=== PATIENT | male | born 1985 | race Caucasian/White ===

== ENCOUNTER 2016-12-17 22:18 | Emergency (ER) | payer OTHER ==
[~2016-12-17] VITALS: Ht 172.7 cm; Wt 82.0 kg
[~2016-12-17 22:18] MED LIST: ACET-1256 PO; IBUP-1050 PO
[2016-12-17 22:21] VITALS: TEMP 37; Ht 172.7 cm; Wt 82.0 kg
[2016-12-17] MEDS ORDERED: TRAM-10 PO (22:43)
[2016-12-17] MEDS ORDERED: OMEP20CA59 PO (22:43)
[2016-12-17] MEDS ORDERED: CYCL10TA6 PO (22:43)
[2016-12-17] MEDS ORDERED: ROPI1TAB PO (22:43)
[2016-12-17] MEDS ORDERED: HYDR-5688 PO (22:43)
[2016-12-17] MEDS ORDERED: AMT10 PO (22:43)
[2016-12-17] MEDS ORDERED: DULO60CA44 PO (22:43)
[2016-12-17] MEDS ORDERED: GABA1CAP5 PO (22:43)
[2016-12-17] MEDS ORDERED: OXYCODONE/ACETAMINOPHEN 5-325 TAB PO ONE (23:15)
[2016-12-17] MEDS ORDERED: OXYC-57 PO (23:43)
[2016-12-17] MEDS ORDERED: PERCOCET HOME PACK PO ONE (23:45)
[2016-12-17 23:58] VITALS: BP 115/80; PULSE 103; O2SAT 98
--- NOTE | 2016-12-18 00:22 | EMERGENCY ROOM VISIT NOTE ---
ED Visit Note First contact with patient: 22:52 CHIEF COMPLAINT: Left ankle and foot pain. HISTORY OF PRESENT ILLNESS: Mr. Jackson is a 31-year old white male who is brought via wheelchair into the ED accompanied by his complaining of left ankle and foot pain. Historically patient reports he has a history of clubfoot bilaterally. He reports for the last 2 years he has been having chronic pain and swelling of the foot. He reports he has been seen by multiple orthopedic physicians and no cause for swelling and pain has been found. Patient reports approximately 1 PM today patient was seen by Dr. Fan of [facility] and had an injection of steroids into his left ankle. Patient reports since arriving home since his injection he reports he has been having increasing pain throughout the left ankle and left foot. Currently he describes his pain as a throbbing and burning sensation. He rates his discomfort 10/10. The pain is nonradiating. The pain worsens with weightbearing, plantar flexion, dorsiflexion, inversion and eversion of the ankle. He has mild relief of his discomfort when he is holding it up in the air. He reports he has taken tramadol and one of his 's Vicodin tablets without relief of his discomfort. Associated with his pain he reports he is there is swelling throughout the foot and ankle. He denies any associated fevers, chills, sweats, skin eruptions, skin color changes, recent trauma, knee pain, lower leg pain, ankle/foot weakness/numbness/ tingling. REVIEW OF SYSTEMS: As noted above in History of Present Illness. PAST MEDICAL HISTORY: As noted above, GERD, status post appendectomy. CURRENT MEDICATIONS: Medications Dose Route/Sig Max Daily Dose Days Date Category Dose Instructions Savannah 5MG/325MG (Acetaminophen/Hydrocodone Bitart) Tab 1 Tablet PO DIRECTED PRN 12/17/16 Reported 'S MEDICATION, PT TOOK "AFTER TRAMADOL DIDN'T WORK". Requip (Ropinirole HCl) 1 Mg Tab 1 Mg PO HS 12/17/16 Reported Flexeril (Cyclobenzaprine Hcl) 10 Mg Tab 10 Mg PO TID PRN 12/17/16 Reported Cymbalta (Duloxetine Hcl) 60 Mg Cap 60 Mg PO QAM 12/17/16 Reported Ultram (Tramadol HCl) 50 Mg Tab 50 Mg PO TID PRN 12/17/16 Reported Prilosec (Omeprazole) 20 Mg Capcr 40 Mg PO AC 12/17/16 Reported Amitriptyline HCl 10 Mg Tab 20 Mg PO HS 12/17/16 Reported Neurontin (Gabapentin) 400 Mg Cap 400 Mg PO TID 12/17/16 Reported Tylenol (Acetaminophen) 500 Mg Tab 1,000 Mg PO Q6 PRN 11/23/15 Reported ALLERGIES TO MEDICATIONS: Patient denies. SOCIAL HISTORY: Patient is not employed; he feels safe in his home environment ; he admits to tobacco and alcohol use. PHYSICAL EXAM: Vital Signs: Date Time Temp Pulse Resp B/P Pulse Ox O2 Delivery O2 Flow Rate FiO2 12/17/16 23:58 103 18 115/80 98 12/17/16 22:21 37.0 122 18 129/74 94 Room Air General: 31 year old male in mild/moderate distress due to pain, nontoxic- appearing, afebrile and hemodynamically stable. Neurological: Awake, alert, oriented to person place and time. Answering questions appropriately and following commands. Skin: Warm dry and pink. No soft tissue injuries or skin eruptions. Left Lower Extremity: No gross mulu deformities. No tenderness in the hip or knee. Diffuse tenderness through the ankle and foot. The injection site which is over the anterior aspect of the lateral malleolus does not show any signs of infection and there is no local erythema or edema. He refused to do range of motion exercises and ligamentous testing at the level of the ankle due to pain. There is a small amount of swelling over the top of the foot in the area of the MTP joints without bony deformity or crepitus. He was able to wiggle his toes. Throughout the foot the skin was warm and pink and capillary refill is brisk. He is able to distinguish light sensations through all dermatomes of the foot. ED COURSE: Patient is assessed as noted above. Left Ankle X-Rays: Were read by myself and shows no acute fractures or dislocations. No foreign body or joint effusion. Radiologist review is pending. Patient was given one Percocet 5/325 mg tablet by mouth for pain. Patient is placed in a gel splint; he reports he has crutches in his vehicle. Patient's case was reviewed with Dr. Beal; we agreed on diagnostic approach, treatment, disposition and plan. Patient is educated about his condition and instructed on his treatment plan; he verbalizes understanding and agreement with the our plan. CLINICAL IMPRESSION: Left ankle and foot pain. DISPOSITION: Patient is discharged to home in stable condition accompanied by his ; prior to departure he was reassessed and subjectively reported he was feeling better and rated his discomfort 5/10. PLAN: Comfort measures were discussed with the pain including rest, ice, splint and crutch use and a sliding pain medication scale of acetaminophen and Savannah; patient was encouraged not to use any of his tramadol while using the Percocet. Additionally patient was warned about proper precautions with narcotics use. I did check the [facility] database and it showed that he receives multiple prescriptions of tramadol but no narcotics. Patient should stay in the splint and on crutches until he follows up with the orthopedic physician for continued care and treatment. Patient should return emergency department as needed for increasing pain, any signs of infection, foot weakness/numbness/tingling or any new/concerning symptoms.
--- NOTE | 2016-12-18 06:38 | DIAGNOSTIC IMAGING REPORT ---
LEFT ANKLE MIN 3 VIEWS ROUTINE CLINICAL HISTORY: Left ankle pain COMPARISON: 11/23/2015 DISCUSSION: There is a possible joint effusion. There are no acute fractures. 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 There is no dislocation. IMPRESSION: No acute fractures. 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 Electronically signed by: Dell Norwood M.D. 12/18/2016 6:37 AM Dictated Date/Time: 12/18/2016 6:35 AM
== END 2016-12-17 23:59 | disposition home or self-care (01) ==
LOC: C.EDB 22:20
DX: M25.572 Pain in left ankle and joints of left foot (principal); M79.672 Pain in left foot; K21.9 Gastro-esophageal reflux disease without esophagitis; F17.200 Nicotine dependence, unspecified, uncomplicated

== ENCOUNTER 2017-01-22 05:41 | Day surgery (SDC) | payer OTHER ==
[2017-01-06 13:31] VITALS: BMI 28.0
[2017-01-08 12:21] LABS: BASO % 0.1 %; BASO ABS # 0.02 K/uL (0-0.2); COMPLETE YES; HEMATOCRIT 47.1 % (42-52); IG% 0.4 %; LYMPH % 22.3 %; LYMPH ABS # 3.08 K/uL (1.2-3.4); MEAN CELL VOLUME 93.3 fL (80-100); MEAN CORPUSCULAR HEMOGLOBIN 30.7 pg (25-34); MEAN CORPUSCULAR HGB CONC 32.9 g/dl (32-36); MEAN PLATELET VOLUME 10.5 fL (7.4-10.4); MONO % 8.5 %; NEUT % 67.7 %; PLATELET COUNT 252 K/uL (130-400); RED BLOOD COUNT 5.05 M/uL (4.7-6.1); WHITE BLOOD COUNT 13.84 K/uL (4.8-10.8)
[2017-01-08 12:29] LABS: CREATININE 0.98 mg/dl (0.60-1.40); POTASSIUM 3.7 mmol/L (3.5-5.1)
[2017-01-08 12:33] LABS: PARTIAL THROMBOPLASTIN RATIO 1.1; PROTHROMBIN TIME (PATIENT) 10.3 SECONDS (9.0-12.0)
[2017-01-08 12:36] LABS: CALCIUM 9.3 mg/dl (8.5-10.1)
--- NOTE | 2017-01-21 12:28 | HISTORY & PHYSICAL EXAMINATION ---
DATE OF ADMISSION: 01/22/2017 SUBJECTIVE CHIEF COMPLAINT: Left foot pain. HISTORY OF PRESENT ILLNESS: This is a patient who had had a clubfoot deformity surgery as a child and has developed worsening pain and deformity of the left hindfoot over many years. He had been treated conservatively; however, he has failed conservative management. He recently had a CT scan which showed hindfoot osteoarthritis. He is now being set up for surgical treatment. PAST MEDICAL HISTORY: Sleep apnea, TMJ, acid reflux, history of extremity numbness. FAMILY HISTORY: Noncontributory. SOCIAL HISTORY: The patient is a 1 pack per day smoker and has been for multiple years. Denies alcohol use. PAST SURGICAL HISTORY: Foot and ankle clubfoot correction. ALLERGIES: DEPO-MEDROL. HE HAD SWELLING OVER THE INJECTION SITE THE REACTION. CURRENT MEDICATIONS: Gabapentin 400 mg 1 p.o. t.i.d., amitriptyline 10 mg 1 p.o. t.i.d., omeprazole 20 mg 1 p.o. daily, tramadol 50 mg 1 p.o. q.6 hours as needed for pain, Duloxetine 60 mg 1 p.o. daily, ropinirole 1 mg 1 p.o. t.i.d., cyclobenzaprine 10 mg 1 p.o. b.i.d. OBJECTIVE PHYSICAL EXAMINATION: GENERAL: The patient is alert and oriented x3. He is in no acute distress. He is a well-dressed, well-nourished 31-year-old male whose affect is appropriate. CARDIOVASCULAR: Heart has a regular rhythm and rate without murmurs. LUNGS: Clear to auscultation bilaterally. EXTREMITIES: Dorsalis pedis, posterior tibial pulse +2/4. Cap refill is less than 2 seconds. LYMPHATICS: No evidence of any swollen lymph nodes. MUSCULOSKELETAL: The patient has an antalgic gait favoring the left lower extremity. Upon inspection of left lower extremity, the patient has swelling noted of the left hindfoot. There is a healed surgical incision of the left hindfoot. With palpation, he has tenderness at the medial and lateral hindfoot on the left side. He has decreased range of motion particularly with dorsiflexion when he gets to approximately neutral with 0 degrees of dorsiflexion. NEUROLOGIC: Sensation normal and intact distally. X-RAY EXAM: CT of the left ankle demonstrates postoperative changes from clubfoot repair with secondary osteoarthritis of the tibiotalar, subtalar and talonavicular joints. ASSESSMENT AND DIAGNOSES: 1. Left hindfoot degenerative joint disease. 2. Left Achilles contracture. PLAN: Above assessment was discussed with the patient. At this time it was recommended the patient undergo a left triple arthrodesis with percutaneous Tendo-Achilles Lengthening. All potential risks, benefits, complications, alternatives and rehab have been discussed with the patient. At this time, he wishes to proceed with the surgery as indicated. He will be scheduled for the surgery on 01/22/2017.
[~2017-01-22] VITALS: Ht 172.7 cm; Wt 85.0 kg
[~2017-01-22 05:41] MED LIST changes: -ACET-1256 PO; +AMT10 PO; +CYCL10TA6 PO; +DULO60CA44 PO; +GABA1CAP5 PO; -IBUP-1050 PO; +OMEP20CA59 PO; +ROPI1TAB PO; +TRAM-10 PO
[2017-01-22] MEDS ORDERED: CEFAZOLIN 2000 MG/60 ML D5W IV SCH (06:00)
[2017-01-22] MEDS ORDERED: LACTATED RINGER'S 1000ML 1,000 ML IV SCH (06:00)
[2017-01-22] MEDS ORDERED: ROPIVACAINE 0.5% 5 MG/ML 30 ML VIAL ONE (06:34)
[2017-01-22 06:42] VITALS: BP 143/87; PULSE 82; TEMP 36.6; O2SAT 97; Ht 172.7 cm; Wt 85.0 kg
[2017-01-22] MEDS ORDERED: LIDOCAINE HCL 2% 2 ML VIAL (20MG/ML) ONE (06:49)
[2017-01-22] MEDS ORDERED: PROPOFOL IV EMULSION 10 MG/ML 20 ML VIAL IV ONE ×3 (06:49→09:59)
[2017-01-22] MEDS ORDERED: FENTANYL CITRATE INJ 50 MCG/1 ML 2 ML VIAL ONE ×2 (06:50→09:59)
[2017-01-22] MEDS ORDERED: MIDAZOLAM HCL 1 MG/ML 2ML VIAL ONE ×3 (06:50→09:59)
[2017-01-22] MEDS ORDERED: BACITRACIN 50000 UNIT VIAL ONE (07:00)
[2017-01-22] MEDS ORDERED: BUPIVACAINE 0.5 % 5 MG/1 ML MPF 30ML VIAL ONE (07:00)
[2017-01-22] MEDS ORDERED: BUPIVACAINE 0.5 % 5 MG/1 ML PF 10ML VIAL ONE (07:17)
--- NOTE | 2017-01-22 07:40 | History & Physical Bridge Note ---
H&P Re-Evaluation Bridge Note: I have examined the patient, reviewed the History & Physical and in the interval since the performance of the History & Physical I have noted the following changes of clinical significance: No changes noted
[2017-01-22] MEDS ORDERED: ATROPINE SULFATE 0.1 MG/ML 5ML SYR IV PRN (08:00)
[2017-01-22] MEDS ORDERED: ONDANSETRON INJ 2 MG/ML 2 ML VIAL IV PRN (08:00)
[2017-01-22] MEDS ORDERED: EpHEDrine SULFATE INJ 50 MG/ML AMP IV PRN (08:00)
[2017-01-22] MEDS ORDERED: HYDROmorphone INJ 1 MG/ML SYR IV PRN (08:00)
[2017-01-22] MEDS ORDERED: FENTANYL CITRATE INJ 50 MCG/1 ML 2 ML VIAL IV PRN (08:00)
--- NOTE | 2017-01-22 10:21 | DIAGNOSTIC IMAGING REPORT ---
FLUOROSCOPIC IMAGES OF THE LEFT ANKLE CLINICAL HISTORY: Left triple arthrodesis. COMPARISON STUDY: Left ankle radiographs December 17, 2016. Fluoroscopy time: 17 seconds. FINDINGS: 2 fluoroscopic images demonstrate cannulated screws extending across the subtalar, talonavicular and calcaneocuboid articulations consistent with a triple arthrodesis. The hardware is intact. A few skin nayana project over the distal Achilles. There is soft tissue gas as expected. IMPRESSION: Expected findings following left triple arthrodesis. Electronically signed by: Jaun Jules M.D. 01/22/2017 10:20 AM Dictated Date/Time: 01/22/2017 10:18 AM
--- NOTE | 2017-01-22 10:45 | [facility] Post Operative Brief Note ---
Immediate Operative Summary Operative Date Jan 22, 2017. Pre-Operative Diagnosis Left hindfoot degenerative joint disease, Left Achilles contracture, Post-Clubfoot Correction. Post-Operative Diagnosis Left hindfoot degenerative joint disease, Left Achilles contracture, Post-Clubfoot Correction. Procedure(s) Performed Left Triple Arthrodesis, Percutaneous TendoAchilles Lengthening, Application Allograft Surgeon Dr. Fan Automatic Folder Seamer Surgeon(s) Valentino Orr PA-C Estimated Blood Loss 5cc Findings See Dict Specimens None Drains HV x 1 Anesthesia Spinal with sedation and popliteal nerve block Complication(s) None Disposition Recovery Room / PACU
[2017-01-22] MEDS ORDERED: OXYC-57 PO (10:54)
[2017-01-22] MEDS ORDERED: ASPEC81 PO (10:54)
--- NOTE | 2017-01-22 10:59 | Discharge Instructions ---
Discharge Instructions Date of Service Jan 22, 2017. Admission Reason for Admission: Left Ankle Degenerative Joint Disease Discharge Discharge Diagnosis / Problem: left hindfoot osteoarthritis Discharge Goals Goal(s): Decrease discomfort, Improve function Activity Recommendations Activity Limitations: per Instructions/Follow-up section Weightbearing Status: Left non-weightbearing . Instructions / Follow-Up Instructions / Follow-Up ACTIVITY RECOMMENDATIONS: Limitations: No weight bearing to affected limb at all times. SPECIAL CARE INSTRUCTIONS: * Some drainage onto the dressing is normal and is no cause for alarm. * Some swelling is natural especially after walking. * When resting, keep your foot elevated above the level of your heart. * Call [facility] if you notice: -Increased drainage -Fever over 101 degrees F -Severe constant pain * If the hemovac drain is still in at home, you may remove it the day after your surgery. To remove, remove all tape from the JUSTUS bandage and pull on the tubing that is near your great toe away from the foot. It should remove without resistance. If the tubing feels like it is stretching, do not continue to try to remove it and contact the office for instructions. * Take Aspirin 81 mg by mouth every 12 hours for 30 days after your surgery. BANDAGE: * Leave bandage/cast in place unless otherwise directed. * Keep bandage/cast dry at all times. FOLLOW UP VISIT WITH DR. GUZMÁN If appointment is not already scheduled: Please call [facility] after you get home today to schedule a follow-up appointment for [address] Guzmán at . Current Hospital Diet Patient's current hospital diet: Discharge Diet Recommended Diet: Regular Diet Procedures Procedures Performed: Left Triple Arthrodesis, Percutaneous TendoAchilles Lengthening, Application Allograft Pending Studies Studies pending at discharge: no Medical Emergencies . Who to Call and When: Medical Emergencies: If at any time you feel your situation is an emergency, please call 911 immediately. . Non-Emergent Contact Non-Emergency issues call your: Surgeon Call Non-Emergent contact if: temperature is above 101, your pain is not controlled, your pain is worsening . "Provider Documentation" section prepared by Valentino Orr. . VTE Core Measure Inpt VTE Proph given/why not?: SCD's
[2017-01-22] MEDS ORDERED: OXYCODONE/ACETAMINOPHEN 5-325 TAB PO PRN (11:00)
[2017-01-22 11:15] VITALS: BP 117/75; PULSE 82; TEMP 36.4; O2SAT 98
--- NOTE | 2017-01-22 11:16 | DIAGNOSTIC IMAGING REPORT ---
LEFT FOOT MIN 3 VIEWS ROUTINE CLINICAL HISTORY: post op fusion COMPARISON: None. DISCUSSION: Operative findings consistent with a total ankle fusion. Sacral screws are present at the talocalcaneal region. Expected soft tissue postoperative change IMPRESSION: Acceptable alignment post ankle fusion Electronically signed by: Anatoly Cadet M.D. 01/22/2017 11:15 AM Dictated Date/Time: 01/22/2017 11:14 AM
--- NOTE | 2017-01-22 11:18 | DIAGNOSTIC IMAGING REPORT ---
LEFT ANKLE 2 VIEWS CLINICAL HISTORY: post op COMPARISON: Intraoperative study performed 01/22/2017 DISCUSSION: 2 views are provided for interpretation. The fine bony details obscured by an overlying plaster cast. There are postsurgical changes of a hindfoot fusion. Metallic calcaneal, calcaneal navicular, and calcaneocuboid cannulated screws are visualized. IMPRESSION: Postsurgical changes of a triple hindfoot arthrodesis Electronically signed by: Dell Norwood M.D. 01/22/2017 11:17 AM Dictated Date/Time: 01/22/2017 11:15 AM
--- NOTE | 2017-01-22 11:22 | Anesthesiology Progress Note ---
Anesthesia Post Op Note Date & Time Jan 22, 2017 at 11:21 Vital Signs Pain Intensity: 0 Vital Signs Past 12 Hours Date Time Temp Pulse Resp B/P (MAP) Pulse Ox O2 Delivery O2 Flow Rate FiO2 01/22/17 11:10 58 18 116/70 100 Oxymask 3 01/22/17 11:00 36.4 60 18 117/74 100 Oxymask 3 01/22/17 10:50 59 16 103/68 100 Oxymask 10 01/22/17 10:44 36.5 63 20 111/82 100 Oxymask 10 01/22/17 06:42 36.6 82 16 143/87 (105) 97 Room Air Notes Mental Status: alert / awake / arousable, participated in evaluation Pt Amnestic to Procedure: Yes Nausea / Vomiting: adequately controlled Pain: adequately controlled Airway Patency, RR, SpO2: stable & adequate BP & HR: stable & adequate Hydration State: stable & adequate Neuraxial Anesthesia: was administered, sensory block is resolving Anesthetic Complications: no major complications apparent
[2017-01-22 11:45] VITALS: BP 117/68; PULSE 80; TEMP 36.4; O2SAT 95
[2017-01-22 12:15] VITALS: BP 122/65; PULSE 85; TEMP 36.4; O2SAT 96
--- NOTE | 2017-01-22 12:23 | OPERATIVE REPORT ---
DATE OF OPERATION: 01/22/2017 PREOPERATIVE DIAGNOSES: 1. Left hindfoot degenerative joint disease. 2. Achilles contracture. 3. Post-clubfoot syndrome. POSTOPERATIVE DIAGNOSES: Same. PROCEDURE: 1. Left triple arthrodesis. 2. Percutaneous tendon Achilles lengthening. 2. Application of allograft. SURGEON: Dean Fan DO PALLIATIVE CARE PHYSICIAN: Valentino Orr PA-C, who was present for patient positioning, sterile prep and drape, management of retractors and instruments. He was present through the critical portions of the case including wound closure, application of sterile dressing and transport of the patient to recovery. ANESTHESIA: Spinal with sedation and popliteal nerve block. SPECIMENS: None. DRAINS: Hemovac x1. COMPLICATIONS: None. BLOOD LOSS: 5 mL. PERTINENT HISTORY: This is a 31-year-old gentleman who had a prior club foot correction as a child and for the last approximately 30 years, has done fairly well; however, over the last 2 years, has had progressive chronic and worsening degenerative arthritis, which was limiting and debilitating. He had difficulty with weightbearing and walking. Pain interferes with his ability and his comfort in the day to day life. The patient had a radiograph, which demonstrated significant deformity and degenerative arthritis. The patient was then scheduled for surgery as indicated. All potential risks, benefits, complications, alternatives, rehab, potential for incomplete relief of symptoms, need for further surgery, DVT, PE, , persistent pain, swelling, scarring, weakness, neurovascular injury, wound complications, hardware breakage, nonunion, and malunion were discussed with the patient. The patient decided to proceed with the procedure as indicated. DESCRIPTION OF PROCEDURE: The patient was taken to the Operating Suite, placed supine on the Operating Room table, after consent and identification of the proper operative site, the patient was anesthetized. LMA was placed. Tourniquet was placed high on the left lower extremity. Left lower extremity was then sterilely prepped and draped in the usual fashion. Exsanguinated with an Esmarch bandage and tourniquet inflated to 350 mmHg. Next, the foot was held in dorsiflexion and a three-part percutaneous incision was made with an 11-blade scalpel to lengthen the Achilles tendon using standard technique. Next, the stab incisions were then closed using interrupted skin nayana. Next, the 15-blade scalpel was used to make an incision from the distal aspect of the fibula to the base of the fourth metatarsal. The incision was deepened through subcutaneous tissue and meticulous hemostasis was obtained with electrocautery. Subcutaneous nerves were identified, retracted and protected. The extensor digitorum brevis was identified and was sharply elevated from the anterior process of the calcaneus revealing the sinus tarsi. Next, the sinus tarsi was debrided carefully with a rongeur and 15-blade scalpel. A cervical lamina journeyman carpenter was placed in the sinus tarsi opening the subtalar joint. Subtalar joint was then prepared with the use of a curette and rongeur to resect the articular surfaces down to subchondral bleeding bone. Irrigation was performed with sterile normal saline and then 2-mm drill bit was used to further prepare the joint surface with multiple drill holes in both surfaces of the subtalar joint and a small osteotome and mallet were used to fish scale the joint surfaces to increase surface area and bleeding. Next, the calcaneocuboid joint was then entered with the 15-blade scalpel, debrided of soft tissue and then a lamina journeyman carpenter was placed in the joint opening it for preparation with a curette and rongeur to remove any articular surface down to subchondral bleeding bone. Next, the 2-mm drill bit was used to further prepare the joint with multiple drill holes into the joint and then a small osteotome and mallet were used to fish scale the joint. Next, the 15-blade was used to make an incision from the distal aspect of the tibia to the base of the naviculocuneiform joint. The incision was deepened through subcutaneous tissue. Meticulous hemostasis obtained with electrocautery. A Weitlaner retractor was placed in the wound. The greater saphenous vein was identified, retracted and protected. The capsule of the talonavicular joint was then entered sharply with a 15-blade scalpel and elevated both superior and inferiorly. A small Denise was placed on the neck of the talus and further soft tissue elevation was performed with the 15-blade scalpel until the talonavicular joint was clearly visualized. The articular surface was then debrided with curette and rongeur and a cervical lamina journeyman carpenter was placed in the joint. Next, it was irrigated with sterile normal saline and a 2-mm drill bit was used to make multiple holes in the joint surfaces and fish scaling was performed with a small osteotome and mallet. Next, the medial and lateral incisions were irrigated with sterile normal saline and the joint surfaces were then aligned appropriately based on alignment of the lower extremity and the kneecap. Subtalar joint was aligned and then a 7.3-mm cannulated guidepin was driven from the superior aspect of the talus across the subtalar joint into the calcaneus under fluoroscopic control. Next, an appropriate length 7.3-mm short-thread screw was placed under fluoroscopic control and countersunk slightly. Next, the guidepin was removed. Next, 2.25 mm guidepin was used to stabilize the talonavicular joint in appropriate alignment and then the calcaneocuboid joint was then stabilized with appropriate alignment under fluoroscopic control. Next, appropriate length of 7.3mm cannulated screws were placed across the talonavicular and calcaneocuboid joints respectively under fluoroscopic control. All guidepins were removed. Wounds were irrigated with sterile normal saline and bone graft was then packed in and around the subtalar, talonavicular and calcaneocuboid joints which was comprised of 15 cc of cancellous bone chips and autograft. A 10-Pashto single lumen Hemovac drain was then placed in the lateral aspect of the wound exiting dorsolaterally and the extensor digitorum brevis then closed back to its origin with interrupted 2-0 Vicryl sutures. The talonavicular joint capsule was closed using 2-0 Vicryl sutures. The dermis was closed using buried interrupted 3-0 Vicryl sutures medially and laterally and then skin incisions were closed using 4-0 Nylon sutures. A sterile compressive dressing and bulky Conrad-Long plaster splint was applied, overwrapped with an Jj wrap. The tourniquet was released. DISPOSITION: The patient awakened and taken to Recovery in stable condition. I attest to the content of the Intraoperative Record and any orders documented therein. Any exceptions are noted below. ALETHEA
== END 2017-01-22 12:30 | disposition home or self-care (01) ==
LOC: C.ACU 05:41
PROVIDERS: ATTEND Orthopaedic Surgery Sports Medicine
DX: M19.072 Primary osteoarthritis, left ankle and foot (principal); M67.02 Short Achilles tendon (acquired), left ankle; R29.898 Other symptoms and signs involving the musculoskeletal system; F17.200 Nicotine dependence, unspecified, uncomplicated; Z79.899 Other long term (current) drug therapy; Z68.28 Body mass index [BMI] 28.0-28.9, adult; Z90.89 Acquired absence of other organs; Z98.890 Other specified postprocedural states

== ENCOUNTER 2017-11-15 21:31 | Emergency (ER) | payer OTHER ==
[~2017-11-15] VITALS: Ht 175.3 cm; Wt 85.0 kg
[~2017-11-15 21:31] MED LIST changes: -AMT10 PO; +ASPEC81 PO; -CYCL10TA6 PO; -DULO60CA44 PO; -GABA1CAP5 PO; -ROPI1TAB PO; -TRAM-10 PO
[2017-11-15 21:46] VITALS: TEMP 36.7; Ht 175.3 cm; Wt 85.0 kg
[2017-11-15] MEDS ORDERED: CYCL10TA6 PO (22:43)
[2017-11-15] MEDS ORDERED: AMT10 PO (22:43)
[2017-11-15] MEDS ORDERED: GABA-1220 PO (22:43)
[2017-11-15] MEDS ORDERED: DULO60CA44 PO (22:43)
[2017-11-15] MEDS ORDERED: ROPI1TAB PO (22:43)
[2017-11-15] MEDS ORDERED: OMEP20CA9 PO (23:23)
[2017-11-15] MEDS ORDERED: ASPI81TA28 PO (23:23)
[2017-11-15] MEDS ORDERED: OXYC-57 PO (23:23)
[2017-11-15] MEDS ORDERED: MoRPHine SULFATE 10 MG/ML CARP/VIAL IM STA (23:33)
[2017-11-15] MEDS ORDERED: ONDANSETRON 4MG OD TAB PO ONE (23:45)
[2017-11-16 00:57] VITALS: BP 144/87; PULSE 98; O2SAT 98
[2017-11-16] MEDS ORDERED: OXYC1TAB3 PO (01:14)
[2017-11-16] MEDS ORDERED: OXYCODONE IR HOME PACK PO ONE (01:15)
--- NOTE | 2017-11-16 05:45 | EMERGENCY ROOM VISIT NOTE ---
History First contact with patient: 23:10 Chief Complaint: FOOT PAIN Stated Complaint: EXTREME PAIN, S/P RT FOOT SURGERY TODAY History of Present Illness The patient is a 32 year old male who presents to the Emergency Room with complaints of severe right foot and ankle pain who had surgery on his ankle earlier today by Dr. Fan. Patient had pins and screws placed. Patient states he took his Percocet with no improvement of symptoms. Pain currently 10 out of 10. Nothing makes it better or worse. Patient denies chest pain, dyspnea, numbness, tingling, new injury to the area. Review of Systems An 10 system review of systems was completed with positives and pertinent negatives listed in the HPI. Past Medical/Surgical History Medical Problems: (1) Asthma (2) Stomach problems Family History Cancer Social History Smoking Status: Current Every Day Smoker Drug Use: none Marital Status: in relationship Current/Historical Medications Scheduled Amitriptyline HCl (Amitriptyline HCl), 20 MG PO HS Aspirin (Aspirin Ec), 81 MG PO Q12 Duloxetine Hcl (Cymbalta), 60 MG PO QAM Gabapentin (Neurontin), 400 MG PO TID Omeprazole (Prilosec), 20 MG PO BID Ropinirole (Requip), 1 MG PO HS Scheduled PRN Cyclobenzaprine Hcl (Flexeril), 10 MG PO TID PRN for Muscle Spasm Oxycodone Immediate Rel Tab (Roxicodone Ir), 1-2 TAB PO Q4H PRN for Severe Pain Oxycodone/Acetaminophen 5MG/325MG (Percocet 5MG/325MG), 1-2 TABLETS PO Q4H PRN for Pain Physical Exam Vital Signs Date Time Temp Pulse Resp B/P (MAP) Pulse Ox O2 Delivery O2 Flow Rate FiO2 11/16/17 00:57 98 18 144/87 98 Room Air 11/15/17 21:46 36.7 116 18 141/91 96 Room Air Physical Exam VITALS: Vitals are noted on the nurse's note and reviewed by myself. Vital signs stable. GENERAL: White male who appears in pain, in no acute distress, nondiaphoretic, well-developed well-nourished. SKIN: Capillary reflex less than 2 seconds. HEENT: Normocephalic. PERRLA. EOMI. Nares patent. Mucous membranes moist. Neck is supple without nuchal rigidity. HEART: Regular rate and rhythm without murmurs gallops or rubs. LUNGS: Clear to auscultation bilaterally without wheezes, rales or rhonchi. No retractions or accessory muscle use. ABDOMEN: Positive bowel sounds x 4. Normal tympanic percussion. Soft, nontender, without masses or organomegaly. Melchor sign negative. No guarding or rebound tenderness. MUSCULOSKELETAL: No gross musculoskeletal defects. Right ankle and foot with surgical sutures intact slightly edematous without signs of infection. Pedal pulses +2 and equal and present bilaterally. No lymphangitis. No calf tenderness. NEURO: Patient was alert and oriented to person place and time. Normal sensation to light and sharp touch. No focal neurological deficits. Medical Decision & Procedures Medications Administered Medications (Trade) Dose Ordered Sig/Can Route Start Time Stop Time Status Last Admin Dose Admin Morphine Sulfate (MoRPHine SULFATE INJ) 8 mg NOW STAT IM 11/15/17 23:33 11/15/17 23:34 DC 11/16/17 00:02 8 MG Ondansetron HCl (Zofran Odt) 4 mg ONE ONCE PO 11/15/17 23:45 11/15/17 23:46 DC 11/16/17 00:01 4 MG Oxycodone HCl (Roxicodone Immediate Rel 5MG Home Pack) 1 homepack UD ONCE PO 11/16/17 01:15 11/16/17 01:16 DC 11/16/17 01:27 1 HOMEPACK ED Course Prior records reviewed and summarized above. Triage Nursing notes reviewed. Additional history obtained from the family. The patient's history was concerning for swelling and pain in the leg. Differential diagnosis: Etiologies such as postsurgical pain, DVT, musculoskeletal, infection, joint effusion, trauma, lymphedema, idiopathic, as well as others were entertained.. Physical examination: The physical examination revealed no signs of infection. Neurovascularly intact. ER treatment provided: Morphine, Zofran, home back OxyIR On reassessment the patient felt better. Diagnostics interpreted by me: Deferred Consultation: A consultation was placed with orthopedics, Dr. Fan who did the surgery. The case was discussed and diagnostics were reviewed. He recommends pain management and follow-up this week with him. This appears to be consistent with postsurgical pain. Patient was neurovascularly and neurologically intact. The cast was removed and then reapplied by the tech. No acute findings of infection or ischemic leg were seen. Neurovascular status was rechecked after placement is intact.. Patient was advised to take medicines as directed and to follow-up this week with his surgeon or here in the ER sooner for severe pain, numbness, tingling, worsening signs or symptoms or as needed. Patient has strong pedal pulses. He had no signs of an ischemic leg. There is no signs of infection. By the evaluation outlined above emergent etiologies such as DVT, septic joint, trauma, infection , CHF, as well as others were deemed relatively unlikely. The pt informed about the findings as listed above. All questions were answered and pleased with the treatment. Return instructions were outlined and the patient was discharged in stable condition. Outpatient prescription management: OxyIR Referral: The patient was referred back to their orthopedics for follow-up in 2 to 3 days for a recheck of the current condition. The chart was completed utilizing [employer] Speech voice recognition software. Grammatical errors, random word insertions, pronoun errors, and incomplete sentences are an occassional consequence of this system due to software limitations, ambient noise, and hardware issues. Any formal questions or concerns about the content, text, or information contained within the body of this dictation should be directly addressed to the physician curriculum assistant principal for clarification. Medical Decision As above [place] Drug Monitoring Program Search Results: patient reviewed within database, see additional documentation (Chronic Ultram prescriptions) Medication Reconcilliation Current Medication List: was personally reviewed by me Blood Pressure Screening Patient's blood pressure: Elevated blood pressure Blood pressure disposition: Elevated BP felt to be situational Impression Primary Impression: Postoperative pain of extremity Departure Information Dispostion Home / Self-Care Condition GOOD Prescriptions Oxycodone Immediate Rel Tab (ROXICODONE IR) 5 Mg Tab 1-2 TAB PO Q4H Y for Severe Pain, #15 TAB Prov: Nata Alejo .LAURENCE 11/16/17 Forms HOME CARE DOCUMENTATION FORM, IMPORTANT VISIT INFORMATION Patient Instructions My [facility] [address] Additional Instructions DO NOT drive, drink alcohol, operate machinery, or perform dangerous activities today. You were given medications in the ER that can affect your ability to safely function or operate a vehicle. Oxycodone (OxyIR) 5mg: Take 1-2 pills every four hours for breakthrough pain. Avoid alcohol, operating machinery or dangerous equipment, working on ladders or roofs, DRIVING, or situations where being under the influence may be dangerous. It is recommended to use an dygt-tcb-ecyubca stool softener such as Colace, 100mg twice daily while taking this medication to avoid constipation. Ibuprofen(Motrin, Advil) may be used for fever or pain. Use 600mg every six hours as needed. Take with food. Avoid using more than 2400mg in a 24 hour period. Do not use 2400mg per day for more than three consecutive days without physician direction. Prolonged inappropriate use can lead to stomach upset or ulcers. This medication can be taken if you need to drive, work, or perform activities which may be dangerous when taking narcotic pain medication. (AND/OR) Acetaminophen(Tylenol) may be used for fever or pain. Use 1000mg every six hours as needed. Avoid using more than 3000mg in a 24 hour period. This medication can be taken if you need to drive, work, or perform activities which may be dangerous when taking narcotic pain medication. Ice compresses for 20 minutes at a time four times daily for 2-3 days. Use the crutches as instructed. Rest and elevate your injury. Do not get the splint wet. If your splint feels excessively tight, you have worsening pain, develop numbness or tingling, or your digits appear blue, loosen the christine wrap. Then reapply the christine wrap gently without removing the splint. If your symptoms are not quickly relieved return to the ER for re- evaluation. Continue current medications. Return to the ER immediately for any numbness, tingling, severe pain, extreme swelling in the extremity or as needed. Call Orthopedics tomorrow to arrange follow up for your injury.
== END 2017-11-16 01:28 | disposition home or self-care (01) ==
LOC: C.EDB 21:33
DX: G89.18 Other acute postprocedural pain (principal); M79.671 Pain in right foot; J45.909 Unspecified asthma, uncomplicated; F17.200 Nicotine dependence, unspecified, uncomplicated; Z79.82 Long term (current) use of aspirin